=== PATIENT | male | born 1980 | race African-American/Black ===

== ENCOUNTER 2017-01-04 21:25 | Emergency (ER) | payer SELFPAY ==
[2017-01-04] MEDS ORDERED: ACETAMINOPHEN 325 MG TABLET PO ONE (21:51)
[2017-01-04] MEDS ORDERED: ACETAMINOPHEN 325 MG TABLET ONE (21:56)
--- NOTE | 2017-01-04 23:42 | ER Document Report ---
ED General - General Mode of Arrival: Ambulatory Information source: Patient TRAVEL OUTSIDE OF THE [place] IN LAST 30 DAYS: No - HPI Onset: Other - Refer to HPI notes Similar symptoms previously: No Recently seen / treated by doctor: No <HAYDEE TALAVERA - Last Filed: 01/05/17 00:44> <SCARDONTRELL - Last Filed: 01/05/17 03:30> - General Chief Complaint: Flu Symptoms Stated Complaint: FLU LIKE SYMPTOMS Time Seen by Provider: 01/04/17 23:34 Notes: Patient is a 36 year old male presenting to the emergency department for nausea , vomiting, diarrhea, fever, dizziness and headache. Patient states his symptoms were onset and started with lightheadedness/dizziness while he was at work. Patient then had some nausea and vomiting early Friday morning after he got off work. Patient states the next day he made it through his shift at [employer] but again was feeling very nauseated and dizzy. Patient states he had some diarrhea that night. Patient states he had a headache when he woke up at 13:00 today and he took 325 mg Aspirin x2. Patient states he had to leave his shift today and was having some diarrhea and some throat pain. Patient came in with a temperature of 102.3 F. Patient has no known allergies. (HAYDEE TALAVERA) - Related Data Allergies/Adverse Reactions: No Known Allergies Allergy (Unverified 01/04/17 21:48) Past Medical History - General Information source: Patient - Social History Smoking Status: Never Smoker Cigarette use (# per day): No Chew tobacco use (# tins/day): No Smoking Education Provided: No Frequency of alcohol use: None Drug Abuse: None Family History: None Patient has suicidal ideation: No Patient has homicidal ideation: No Neurological Medical History: Reports: Hx Migraine Surgical Hx: Negative - Immunizations Hx Diphtheria, Pertussis, Tetanus Vaccination: Yes <HAYDEE TALAVERA - Last Filed: 01/05/17 00:44> Review of Systems - Review of Systems Constitutional: See HPI, Fever, Malaise EENT: See HPI, Throat pain Cardiovascular: See HPI, Dizziness, Lightheaded Respiratory: No symptoms reported Gastrointestinal: See HPI, Diarrhea, Nausea, Vomiting Genitourinary: No symptoms reported Male Genitourinary: No symptoms reported Musculoskeletal: No symptoms reported Skin: No symptoms reported Hematologic/Lymphatic: No symptoms reported Neurological/Psychological: See HPI, Headaches -: Yes All other systems reviewed and negative <HAYDEE TALAVERA - Last Filed: 01/05/17 00:44> Physical Exam - Vital signs Interpretation: Febrile <HAYDEE TALAVERA - Last Filed: 01/05/17 00:44> - HEENT Neck: Normal, Supple <DONTRELL ABBOTT - Last Filed: 01/05/17 03:30> - Vital signs Vitals: Temp Pulse Resp BP Pulse Ox 102.3 F H 106 H 22 H 129/79 H 100 01/04/17 21:47 01/04/17 21:47 01/04/17 21:47 01/04/17 21:47 01/04/17 21:47 - Notes Notes: GENERAL: Alert, interacts well. Mild distress. HEAD: Normocephalic, atraumatic. EYES: Appear normal. Pupils equal, round, and reactive to light. ENT: Moist mucus membranes, tongue midline. Erythema and viral appearing oropharynx. Ulcer located on the tip of the tongue. NECK: Full range of motion. Supple. Trachea midline. Anterior cervical tenderness with palpation, no lymphadenopathy or nodes. LUNGS: Clear to auscultation bilaterally, no wheezes, rales, or rhonchi. No respiratory distress. HEART: Regular rate and rhythm. No murmurs, gallops, or rubs. ABDOMEN: Soft, non-tender. Non-distended. Normal bowel sounds. EXTREMITIES: Moves all 4 extremities spontaneously. Normal strength. No edema. NEUROLOGICAL: Alert and oriented x3. Normal speech. No focal neurological deficits. GCS 15. PSYCH: Normal affect, normal mood. SKIN: Warm, dry, normal turgor. (HAYDEE TALAVERA) Course - Laboratory Result Diagrams: 01/05/17 00:11 01/05/17 00:11 <HAYDEE TALAVERA - Last Filed: 01/05/17 00:44> - Laboratory Result Diagrams: 01/05/17 00:11 01/05/17 00:11 <DONTRELL ABBOTT - Last Filed: 01/05/17 03:30> - Vital Signs Vital signs: Temp Pulse Resp BP Pulse Ox 102.3 F H 106 H 22 H 129/79 H 100 01/04/17 21:47 01/04/17 21:47 01/04/17 21:47 01/04/17 21:47 01/04/17 21:47 - Laboratory Laboratory results interpreted by me: 01/05/17 01/05/17 00:11 01:12 Seg Neuts % (Manual) 83 H Lymphocytes % (Manual) 3 L Abs Lymphs (Manual) 0.3 L Urine Ketones 20 H Urine Urobilinogen 4.0 H Discharge <HAYDEE TALAVERA - Last Filed: 01/05/17 00:44> <DONTRELL ABBOTT - Last Filed: 01/05/17 03:30> - Discharge Clinical Impression: Viral syndrome Fever Qualifiers: Fever type: unspecified Qualified Code(s): R50.9 - Fever, unspecified Condition: Stable Disposition: HOME, SELF-CARE Additional Instructions: Viral Syndrome: The physician has diagnosed a viral infection. Viruses not only cause "colds," but can cause many different symptoms including generalized aching, fever, headache, cough, diarrhea, nausea, vomiting, and fatigue. The treatment, for the most part, is simply relief of symptoms. This means that antibiotics are usually not given. Rest, fluids, pain medications and, occasionally, medication for the specific symptoms that are most bothersome will be prescribed. Use good handwashing to avoid passing the virus to others. Shared toys should be cleaned with disinfectant. Clean the toilets, sinks, and counter surfaces in bathrooms. Launder clothing in hot water. Contact the physician if you develop any new or unusual symptoms such as severe headache, stiff neck, high fever, chest pain, productive cough, or shortness of breath. You should be rechecked if you don't see marked improvement within seven to 10 days. TAKE TYLENOL AND MOTRIN FOR PAIN AND FEVER. DRINK PLENTY OF COOL CLEAR LIQUIDS. GET PLENTY OF REST AND SLEEP. FOLLOW UP WITH A LOCAL MEDICAL DOCTOR IF NOT IMPROVING. RETURN TO THE EMERGENCY ROOM IF ANY NEW OR WORSENING SYMPTOMS. Forms: Return to Work Scribe Attestation: 01/05/17 03:30 I personally performed the services described in the documentation, reviewed and edited the documentation which was dictated to the scribe in my presence, and it accurately records my words and actions. (DONTRELL ABBOTT) Scribe Documentation - Scribe Written by Scribe:: Donya Perez 01/05/2017 00:50 acting as scribe for :: Scar <HAYDEE TALAVERA - Last Filed: 01/05/17 00:44>
[2017-01-04] MEDS ORDERED: KETOROLAC TROMETHAMINE INJ/PF 30 MG/1 ML SDV IV ONE (23:43)
[2017-01-04] MEDS ORDERED: NORMAL SALINE 1000 ML 1,000 ML IV ONE (23:43)
[2017-01-04] MEDS ORDERED: ONDANSETRON HCL INJ/PF 4 MG/2 ML SDV IV ONE (23:43)
[2017-01-05 00:34] LABS: ALANINE AMINOTRANSFERASE 30 U/L (21-72); ALBUMIN 4.6 g/dL (3.5-5.0); ALKALINE PHOSPHATASE 80 U/L (38-126); ANION GAP 13 (5-19); ASPARTATE AMINO TRANSFERASE 24 U/L (17-59); BILIRUBIN,DIRECT 0.4 mg/dL (0.0-0.4); BILIRUBIN,TOTAL 0.8 mg/dL (0.2-1.3); BLOOD UREA NITROGEN 10 mg/dL (7-20); CALCIUM 9.8 mg/dL (8.4-10.2); CARBON DIOXIDE 26 mmol/L (22-30); CHLORIDE 99 mmol/L (98-107); CREATININE RESULT 1.01 mg/dL (0.52-1.25); GLUCOSE 103 mg/dL (75-110); POTASSIUM 3.9 mmol/L (3.6-5.0); SODIUM 138.4 mmol/L (137-145); TOTAL PROTEIN 7.9 g/dL (6.3-8.2)
[2017-01-05 00:54] LABS: HEMOGLOBIN 14.2 g/dL (13.5-17.0); RED BLOOD COUNT 4.61 10^6/uL (4.35-5.55); WHITE BLOOD COUNT 9.1 10^3/uL (4.0-10.5)
[2017-01-05 00:55] LABS: HEMATOCRIT 41.4 % (37.9-51.0); HGB HCT DIFFERENCE 1.2; MEAN CORPUSCULAR HEMOGLOBIN 30.7 pg (27.0-33.4); MEAN CORPUSCULAR HGB CONC 34.3 g/dL (32.0-36.0); MEAN CORPUSCULAR VOLUME 90 fl (80-97); RED CELL DISTRIBUTION WIDTH 13.9 % (11.5-14.0)
[2017-01-05 01:02] LABS: BAND NEUTROPHILS % (MANUAL) 5 % (3-5); BASOPHILS % (MANUAL) 1 % (0-2); EOSINOPHILS % (MANUAL) 0 % (0-6); LYMPHOCYTES % (MANUAL) 3 % (13-45); TOTAL CELLS COUNTED 100
[2017-01-05 01:04] LABS: OVALOCYTES SLIGHT
[2017-01-05] MEDS ORDERED: DEXTROSE 5%-LACTATED RINGERS 1,000 ML IV ONE (01:30)
[2017-01-05 01:45] LABS: APPEARANCE,URINE CLEAR; BILIRUBIN,URINE NEGATIVE (NEGATIVE); GLUCOSE, URINE NEGATIVE (NEGATIVE); KETONES,URINE 20 mg/dL (NEGATIVE); LEUKOCYTE ESTERASE,URINE NEGATIVE (NEGATIVE); NITRITE,URINE NEGATIVE (NEGATIVE); PROTEIN,URINE NEGATIVE (NEGATIVE); URINE SPECIFIC GRAVITY 1.025
[2017-01-05 04:17] VITALS: BP 111/72
== END 2017-01-05 03:50 | disposition home or self-care (01) ==
LOC: ER 21:25
DX: B34.9 Viral infection, unspecified (principal); R50.9 Fever, unspecified; R11.2 Nausea with vomiting, unspecified; R19.7 Diarrhea, unspecified; R42 Dizziness and giddiness; R51 Headache
CPT/HCPCS: 99283; 96361; 96375; 96365; 36415; 87070; 87880; 85025; 80053; 81001; J1885; J2405; J7030

== ENCOUNTER 2018-11-07 02:39 | Emergency (ER) | payer SELFPAY ==
--- NOTE | 2018-11-07 03:07 | ER Document Report ---
ED General - General Stated Complaint: ABDOMINAL PAIN Time Seen by Provider: 11/07/18 02:55 Notes: Patient is a pleasant 30-year-old male who presents with complaint of vomiting and abdominal pain. He says that he normally does not drink alcohol but today was his birthday and he was still being his birthday and therefore he drank a significant of alcohol. He felt fine before drinking and then afterwards to have abdominal pain and vomiting. Denies any fevers. No other complaints at this time. Otherwise feels well. He is not taking medications on a regular ba sis. He denies any history of abdominal surgeries. TRAVEL OUTSIDE OF THE [place] IN LAST 30 DAYS: No - Related Data Allergies/Adverse Reactions: No Known Allergies Allergy (Unverified 01/04/17 21:48) Past Medical History - Social History Smoking Status: Never Smoker Frequency of alcohol use: Rare Drug Abuse: None Family History: None Neurological Medical History: Reports: Hx Migraine Renal/ Medical History: Denies: Hx Peritoneal Dialysis - Immunizations Hx Diphtheria, Pertussis, Tetanus Vaccination: Yes Review of Systems - Review of Systems Notes: My Normal Review Basic REVIEW OF SYSTEMS: CONSTITUTIONAL : Denies fever, chills, or sweats. Denies recent illness. CARDIOVASCULAR: Denies chest pain. RESPIRATORY: Denies cough, cold, or chest congestion. Denies shortness of breath, difficulty breathing, or wheezing. GASTROINTESTINAL: Epigastric abdominal pain. recurrent vomiting. MUSCULOSKELETAL: Denies neck or back pain or joint pain or swelling. SKIN: Denies rash or skin lesions. NEUROLOGICAL: Denies altered mental status or loss of consciousness. Denies headache. Denies weakness or paralysis or loss of use of either side. Denies problems with gait or speech. Denies sensory or motor loss. ALL OTHER SYSTEMS REVIEWED AND NEGATIVE. Physical Exam - Notes Notes: General Appearance: Well nourished, alert, cooperative, no acute distress, no obvious discomfort. Vitals: reviewed, See vital signs table. Head: no swelling or tenderness to the head Eyes: PERRL, EOMI, Conjuctiva clear Mouth: No decreasd moisture Lungs: No wheezing, No rales, No rhonci, No accessory muscle use, good air exchange bilaterally. Heart: Normal rate, Regular rythm, No murmur, no rub Abdomen: Normal BS, soft, No rigidity, no diffuse abdominal tenderness to pa lpation, No guarding, no rebound, no abdominal masses, no organomegaly Extremities: strength 5/5 in all extremities, good pulses in all extremities, no swelling or tenderness in the extremities, no edema. Skin: warm, dry, appropriate color, no rash Neuro: speech clear, oriented x 3, normal affect, responds appropriately to questions. Course - Re-evaluation Re-evalutation: 11/07/18 05:03 On reevaluation patient start to feel better. His nausea is improving however he says he still has some mild nausea. He says he is more aware of what happened now. He says that that was his birthday and he did not drink alcohol long time and had a decent amount of alcohol tonight before he started having abdominal pain and vomiting. We will give him a GI cocktail to see if this helps the rest of abdominal pain. I will give him Zofran to help relieve the rest of his nausea. Patient's vital signs are stable and his lab work is unrem arkable at this time. 11/07/18 06:24 Patient is feeling much better after GI cocktail. She is requesting some IV fluids for at least. We will give a liter of IV fluids. He is no longer nauseous. Once his IV fluids are finished we will discharge him home. I suspect patient probably alcoholic gastritis. Discharge patient home with Zofran. Encouraged him to follow very bland diet. Encouraged him return to ER if he has recurrent vomiting, worsening pain, fevers, or if he feels unwell. Patient agrees with plan will be discharged home after IV fluids are completed. Dictation of this chart was performed using voice recognition software; therefore, there may be some unintended grammatical errors. - Laboratory Result Diagrams: 11/07/18 02:44 11/07/18 02:44 Laboratory results interpreted by me: 11/07/18 11/07/18 02:44 03:40 Carbon Dioxide 20 L Glucose 131 H Calcium 10.5 H ALT 20 L Total Protein 8.5 H Urine Ketones TRACE H - EKG Interpretation by Me Additional EKG results interpreted by me: 11/07/18 03:06 EKG is reviewed and interpreted by me. EKG shows sinus rhythm with with intermittent PACs. NC interval, QRS duration, QT intervals are within normal range. Old EKG for comparison is from November 06, 2012. Discharge - Discharge Clinical Impression: Abdominal pain Qualifiers: Abdominal location: unspecified location Qualified Code(s): R10.9 - Unspecified abdominal pain Vomiting Qualifiers: Vomiting type: unspecified Vomiting Intractability: non-intractable Nausea presence: with nausea Qualified Code(s): R11.2 - Nausea with vomiting, unspecified Condition: Good Disposition: HOME, SELF-CARE Additional Instructions: I have given you a small bottle of a medication called Zofran. You can take this every 4 hours as needed for any nausea. Please rest over the next 24 hours. Do not eat any spicy or fried foods. Please eat a bland diet for the next 24 hours. You can take Pepcid 20 mg twice a day. This can be bought [id number]. Please avoid any alcohol. Please return to ER if you have worsening abdominal pain, recurrent vomiting, fevers, or if you feel unwell. Forms: Return to Work
[2018-11-07 03:18] LABS: ABSOLUTE BASOPHILS # (AUTO) 0.1 10^3/uL (0.0-0.2); ABSOLUTE EOSINOPHILS # (AUTO) 0.1 10^3/uL (0.0-0.6); ABSOLUTE LYMPHOCYTES (AUTO) 2.5 10^3/uL (0.5-4.7); ABSOLUTE MONOCYTES (AUTO) 0.7 10^3/uL (0.1-1.4); BASOPHILS % (AUTO) 0.5 % (0-2); EOSINOPHILS % (AUTO) 0.5 % (0-6); HEMATOCRIT 44.4 % (37.9-51.0); HEMOGLOBIN 14.9 g/dL (13.5-17.0); LYMPHOCYTES % (AUTO) 24.3 % (13-45); MEAN CORPUSCULAR HEMOGLOBIN 30.2 pg (27.0-33.4); MEAN CORPUSCULAR HGB CONC 33.4 g/dL (32.0-36.0); MEAN CORPUSCULAR VOLUME 90 fl (80-97); MONOCYTES % (AUTO) 7.1 % (3-13); PLATELET COUNT 374 10^3/uL (150-450); RED BLOOD COUNT 4.91 10^6/uL (4.35-5.55); SEGMENTED NEUTROPHILS % (AUTO) 67.6 % (42-78); TOTAL CELLS COUNTED % (AUTO) 100 %; WHITE BLOOD COUNT 10.3 10^3/uL (4.0-10.5)
[2018-11-07 03:25] LABS: ALANINE AMINOTRANSFERASE 20 U/L (21-72); ALCOHOL 93 mg/dL (NONE DETECTED); ALKALINE PHOSPHATASE 86 U/L (38-126); ANION GAP 17 (5-19); ASPARTATE AMINO TRANSFERASE 20 U/L (17-59); BILIRUBIN,DIRECT 0.3 mg/dL (0.0-0.4); BILIRUBIN,TOTAL 0.5 mg/dL (0.2-1.3); BLOOD UREA NITROGEN 10 mg/dL (7-20); CALCIUM 10.5 mg/dL (8.4-10.2); CARBON DIOXIDE 20 mmol/L (22-30); CHLORIDE 105 mmol/L (98-107); GLUCOSE 131 mg/dL (75-110); POTASSIUM 3.8 mmol/L (3.6-5.0); SODIUM 142.4 mmol/L (137-145); TOTAL PROTEIN 8.5 g/dL (6.3-8.2)
[2018-11-07 03:53] LABS: APPEARANCE,URINE CLEAR; BILIRUBIN,URINE NEGATIVE (NEGATIVE); COLOR,URINE YELLOW; GLUCOSE, URINE NEGATIVE (NEGATIVE); KETONES,URINE TRACE mg/dL (NEGATIVE); LEUKOCYTE ESTERASE,URINE NEGATIVE (NEGATIVE); NITRITE,URINE NEGATIVE (NEGATIVE); PROTEIN,URINE NEGATIVE (NEGATIVE); URINE SPECIFIC GRAVITY 1.015; UROBILINOGEN,URINE NEGATIVE mg/dL (<2.0)
[2018-11-07] MEDS ORDERED: LIDOCAINE 2% VISCOUS SOLN 20 ML UDCUP PO ONE (05:02)
[2018-11-07] MEDS ORDERED: ONDANSETRON HCL INJ/PF 4 MG/2 ML SDV IV ONE (05:02)
[2018-11-07] MEDS ORDERED: MAG HYDROX/AL HYDROX/SIMETH SUSP 30 ML UDCUP PO ONE (05:02)
[2018-11-07] MEDS ORDERED: ONDANSETRON ODT 4 MG TAB (6 TAB/ER DISP) PO PRN (06:19)
[2018-11-07] MEDS ORDERED: NORMAL SALINE 1000 ML 1,000 ML IV ONE (06:22)
[2018-11-07 06:26] VITALS: BP 131/72
--- NOTE | 2018-11-07 09:56 | EKG REPORT ---
SEVERITY:- ABNORMAL ECG - SINUS RHYTHM PACS WITH ABERRENCY : Confirmed by: Vitaliy Aceves MD 07-Nov-2018 09:56:23
== END 2018-11-07 07:18 | disposition home or self-care (01) ==
LOC: ER 02:39
DX: R11.2 Nausea with vomiting, unspecified (principal); R10.13 Epigastric pain
CPT/HCPCS: 93005; 99284; 96361; 96374; 36415; 80307; 83690; 85025; 80053; 81001; 93010; J3490; J2405; J7030

== ENCOUNTER 2019-05-11 20:03 | Emergency (ER) | payer SELFPAY ==
[2019-05-11] MEDS ORDERED: IBUPROFEN 800 MG TABLET PO ONE (20:47)
--- NOTE | 2019-05-11 20:51 | ER Document Report ---
HPI - HPI Time Seen by Provider: 05/11/19 20:41 Context: Patient is a 38-year-old male that comes to the emergency department for chief complaint of congestion, sneezing, body aches, chills, fever. Symptoms started yesterday. He denies cough, abdominal pain, headache, vomiting, sore throat. He does report sick contacts at work. He has not had the influenza vaccine. He denies any daily medications, diagnosed medical history, recreational drug use, smoking. Past Medical History - General Information source: Patient - Social History Smoking Status: Never Smoker Frequency of alcohol use: None Drug Abuse: None Lives with: Family Family History: None Neurological Medical History: Reports: Hx Migraine Renal/ Medical History: Denies: Hx Peritoneal Dialysis - Immunizations Hx Diphtheria, Pertussis, Tetanus Vaccination: Yes Vertical Provider Document - CONSTITUTIONAL General Appearance: WD/WN, No Apparent Distress - INFECTION CONTROL TRAVEL OUTSIDE OF THE [place] IN LAST 30 DAYS: No - HEENT HEENT: Atraumatic, Normocephalic, PERRLA. negative: Conjuctival Injection, Normal ENT Exam - Mild nasal congestion, minimal postnasal drip, unremarkable oropharyngeal exam. Unremarkable ears, eyes - NECK Neck: Normal Inspection - RESPIRATORY Respiratory: Breath Sounds Normal, No Respiratory Distress. negative: Wheezing - CARDIOVASCULAR Cardiovascular: Regular Rate, Regular Rhythm. negative: Tachycardia - GI/ABDOMEN Gastrointestinal: Abdomen Soft, Abdomen Non-Tender - BACK Back: Normal Inspection - MUSCULOSKELETAL/EXTREMETIES Musculoskeletal/Extremeties: MAEW, FROM, Non-Tender - NEURO Level of Consciousness: Awake, Alert, Appropriate Motor/Sensory: No Motor Deficit, No Sensory Deficit - DERM Integumentary: Warm, Dry, No Rash Course - Re-evaluation Re-evalutation: Patient with nasal congestion, reported fevers and chills, however he has no headache, no nuchal rigidity, clear lungs, no cough, soft abdomen, and he is very well-appearing. Influenza is negative. Appears to be overall viral illness, very low suspicion of concerning infection. Provided patient with work release, discussed expectations, follow-up, return precautions. Patient states appreciation and agreement. Stable at time of discharge. - Vital Signs Vital signs: Temp Pulse Resp BP Pulse Ox 98.5 F 93 20 131/69 H 100 05/11/19 20:07 05/11/19 20:07 05/11/19 20:07 05/11/19 20:07 05/11/19 20:07 Discharge - Discharge Clinical Impression: Sneezing, Body aches Fever Qualifiers: Fever type: unspecified Qualified Code(s): R50.9 - Fever, unspecified Condition: Stable Disposition: HOME, SELF-CARE Additional Instructions: Your influenza test is negative, however your evaluation is very consistent with a viral illness. You can take 1000 mg of Tylenol and 600 mg of ibuprofen every 6 hours to help control your fever and body aches. Drink plenty of fluids, you can take [id number] medications such as decongestants and antihistamines to help reduce sneezing and congestion. Rest. Symptoms will resolve with time. Follow-up with primary care for additional evaluation and management. Return if you worsen including difficulty breathing, vomiting, severe headache, or any other concerning or worsening symptoms. Forms: Return to Work
[2019-05-11 21:28] LABS: A TYPE INFLUENZA AG NEGATIVE (NEGATIVE); B INFLUENZA AG NEGATIVE (NEGATIVE)
[2019-05-11 21:52] VITALS: BP 127/84
== END 2019-05-11 21:50 | disposition home or self-care (01) ==
LOC: ER 20:03
DX: R09.81 Nasal congestion (principal); R50.9 Fever, unspecified; R06.7 Sneezing; M79.10 Myalgia, unspecified site
CPT/HCPCS: 87804; 99283